=== PATIENT | male | born 1965 | race Caucasian/White ===

== ENCOUNTER 2016-11-06 09:14 | Outpatient (CLI) ==
[2016-06-13 16:23] VITALS: BMI 36.2
[2016-11-06 09:26] LABS: BASOPHILS # (AUTO) 0.1 K/uL (0-0.2); EOSINOPHILS # (AUTO) 0.2 K/ul (0.0-0.7); EOSINOPHILS % (AUTO) 2.5 % (0.0-7.0); HEMATOCRIT 47.6 % (42.0-52.0); HEMOGLOBIN 16.5 g/dl (14.0-18.0); IMMATURE GRANULOCYTE % (AUTO) 0.3 % (0.0-5.0); LYMPHOCYTES # (AUTO) 2.7 K/uL (0.60-3.4); LYMPHOCYTES % (AUTO) 34.9 (10.0-50.0); MEAN CORPUSCULAR HEMOGLOBIN 32.7 pg (27.0-31.0); MEAN CORPUSCULAR HGB CONC 34.7 (31.8-35.4); MEAN CORPUSCULAR VOLUME 94.4 fl (80.0-94.0); MONOCYTES # (AUTO) 0.6 K/uL (0.4-2.0); MONOCYTES % (AUTO) 7.2 (0-10); NEUTROPHILS # (AUTO) 4.2 K/ul (2.0-6.9); NEUTROPHILS % (AUTO) 54.1; PLATELET COUNT 215 10^3/uL (140-440); RED BLOOD COUNT 5.04 10^6/ul (4.70-6.10); WHITE BLOOD COUNT 7.68 K/ul (4.2-10.2)
[2016-11-06 10:09] LABS: ALBUMIN 3.8 g/dL (3.4-5.0); ALBUMIN/GLOBULIN RATIO 1.06; ANION GAP 11.1; BILIRUBIN,TOTAL 0.47 mg/dL (0.00-1.20); BUN/CREATININE RATIO 11.82; CALCIUM 9.2 mg/dL (8.2-10.2); CREATININE 0.93 mg/dL (0.60-1.10); POTASSIUM 4.1 mmol/L (3.5-5.1); TOTAL PROTEIN 7.4 g/dL (6.4-8.2)
== END 2016-11-06 09:15 | disposition home or self-care (01) ==
LOC: LAB 09:14
PROVIDERS: ATTEND Emergency Medicine
DX: I10 Essential (primary) hypertension (principal); I25.10 Atherosclerotic heart disease of native coronary artery without angina pectoris; E78.00 Pure hypercholesterolemia, unspecified; R73.9 Hyperglycemia, unspecified; Z12.5 Encounter for screening for malignant neoplasm of prostate
CPT/HCPCS: 36415; 80053; 80061; 83036; 84443; 85025

== ENCOUNTER 2019-03-10 10:13 | Outpatient (CLI) | payer OTHER ==
[2016-06-13 16:23] VITALS: BMI 36.2
--- NOTE | 2019-03-10 13:51 | DI ---
EXAM: Four views of the cervical spine. History: Neck pain. COMPARISON: None. FINDINGS / IMPRESSION: Cervical spine is visualized to inferior endplate of C6. Cervicothoracic junction is not well visual ized secondary to superimposed structures. Straightening of the normal cervical lordosis. No significant listhesis. C1-C2 are masses are symme trically aligned. Vertebral body heights are preserved. No acute fracture. No prevertebral soft tissue swelling. Multilevel mild disc space narrowing, endplate spurring. Left greater than right facet arthrosis, ad vanced at C4-5 and C5-6 on the left.
--- NOTE | 2019-03-10 13:54 | DI ---
EXAM: Three views of the lumbar spine. INDICATION: Lumbar back pain. COMPARISON: None. FINDINGS/IMPRESSION: There are five lumbar type vertebral bodies. Spinal Alignment is preserved. 4 mm retrolisthesis of L2-L3. Vertebral body heights are preserved. No acute fracture. Mild multilevel disc space narrowing. Moderate endplate spurring at L3-4 and L4-5.
== END 2019-03-10 10:14 | disposition home or self-care (01) ==
LOC: RAD 10:13
PROVIDERS: ATTEND Physician Assistant
DX: M54.5 Low back pain (principal); M54.2 Cervicalgia